=== PATIENT | female | born 1990 | race Caucasian/White ===

== ENCOUNTER 2017-07-20 11:00 | Inpatient (IN) | payer BC ==
[2017-07-20] MEDS: NORMAL SALINE 1000 ML 1,000 ML IV PRN (12:02)
[2017-07-20 12:09] LABS: HEMATOCRIT 39.1 % (36.0-47.0); HEMOGLOBIN 13.3 g/dL (12.0-15.5); MEAN CORPUSCULAR HEMOGLOBIN 32.1 pg (27.0-33.4); MEAN CORPUSCULAR HGB CONC 34.1 g/dL (32.0-36.0); MEAN CORPUSCULAR VOLUME 94 fl (80-97); PLATELET COUNT 278 10^3/uL (150-450); RED BLOOD COUNT 4.15 10^6/uL (3.72-5.28); WHITE BLOOD COUNT 19.7 10^3/uL (4.0-10.5)
--- NOTE | 2017-07-20 12:09 | ER Document Report ---
ED General - General Chief Complaint: Flu Symptoms Stated Complaint: FLU LIKE SYMPTOMS Time Seen by Provider: 07/20/17 11:29 Information source: Patient TRAVEL OUTSIDE OF THE [place] IN LAST 30 DAYS: No - HPI Patient complains to provider of: cough/fever Onset: Yesterday Onset/Duration: Gradual Severity: Moderate Associated symptoms: Chills, Nonproductive cough, Fever. denies: Nausea, Vomiting Exacerbated by: Coughing Relieved by: Denies Similar symptoms previously: No Recently seen / treated by doctor: No - Related Data Allergies/Adverse Reactions: No Known Allergies Allergy (Verified 07/20/17 11:01) Past Medical History - General Information source: Patient - Social History Smoking Status: Never Smoker Chew tobacco use (# tins/day): No Frequency of alcohol use: None Drug Abuse: None Lives with: Family Family History: Reviewed & Not Pertinent Patient has suicidal ideation: No Patient has homicidal ideation: No - Medical History Medical History: Negative Renal/ Medical History: Denies: Hx Peritoneal Dialysis - Immunizations Hx Diphtheria, Pertussis, Tetanus Vaccination: Yes Review of Systems - Review of Systems Constitutional: See HPI EENT: No symptoms reported Cardiovascular: No symptoms reported Respiratory: No symptoms reported Gastrointestinal: No symptoms reported Genitourinary: No symptoms reported Female Genitourinary: No symptoms reported Musculoskeletal: Other - body aches Skin: No symptoms reported Hematologic/Lymphatic: No symptoms reported Neurological/Psychological: Other - dizzy Physical Exam - Vital signs Vitals: Temp Pulse Resp BP Pulse Ox 98.7 F 126 H 22 H 93/79 L 91 L 07/20/17 11:08 07/20/17 11:08 07/20/17 11:08 07/20/17 11:08 07/20/17 11:08 - Notes Notes: PHYSICAL EXAMINATION: GENERAL: Well-appearing, well-nourished and in no acute distress. HEAD: Atraumatic, normocephalic. EYES: Pupils equal round and reactive to light, extraocular movements intact, conjunctiva are normal. ENT: Nares patent, oropharynx clear without exudates. Moist mucous membranes. TMs within normal limits bilaterally NECK: Normal range of motion, supple without lymphadenopathy LUNGS:. Rhonchi left lung field. No wheezes or crackles. HEART: Regular rate and rhythm without murmurs. Unable to examine cap refill secondary to patient having on fake nails with nail malagasy, as well as nail malagasy on her toes. ABDOMEN: Soft, nontender, nondistended abdomen. No guarding, no rebound. No masses appreciated. Female : deferred Musculoskeletal: Normal range of motion, no pitting or edema. No cyanosis. NEUROLOGICAL: Cranial nerves grossly intact. Normal speech, normal gait. Normal sensory, motor exams PSYCH: Normal mood, normal affect. SKIN: Warm, Dry, normal turgor, no rashes or lesions noted. Course - Re-evaluation Re-evalutation: 07/20/17 13:56 Patient's heart rate is 122 sinus tach. She is pulse oxing 80% on room air will be placed on 2 L of oxygen.Pressures 120/69.Lung exam shows rhonchi no wheezing Call has been placed to the hospitalist for admission on awaiting callback 07/20/17 15:52 :Reevaluation: Blood pressure 128/75 after 3 liters IVF. Patient resting comfortably. Again Refill cannot be assessed secondary to fake nnails and nail malagasy. 07/20/17 15:53 - Vital Signs Vital signs: Temp Pulse Resp BP Pulse Ox 98.7 F 126 H 27 H 122/75 90 L 07/20/17 11:08 07/20/17 11:08 07/20/17 15:31 07/20/17 15:31 07/20/17 15:31 - Laboratory Result Diagrams: 07/20/17 11:40 07/20/17 11:40 Laboratory results interpreted by me: 07/20/17 07/20/17 07/20/17 11:40 11:40 11:40 WBC 19.7 H Band Neutrophils % 13 H Lymphocytes % (Manual) 8 L Monocytes % (Manual) 2 L Abs Neuts (Manual) 17.5 H BUN 32 H Creatinine 1.63 H Est GFR ( Amer) 47 L Est GFR (Non-Af Amer) 38 L Glucose 129 H Lactic Acid 3.1 H - Diagnostic Test Radiology reviewed: Image reviewed, Reports reviewed Radiology results interpreted by me: 07/20/17 15:53 LLL pneumonia Critical Care Note - Critical Care Note Total time excluding time spent on procedures (mins): 30 Comments: 30 minutes of critical care time spent in direct contact evaluating and reevaluating the patient, treating symptoms, reviewing labs and studies and speaking with family and consultants excluding any procedures Discharge - Discharge Clinical Impression: Pneumonia, Renal insufficiency, Bandemia, Dehydration, Sepsis Condition: Stable Disposition: ADMITTED INPATIENT Admitting Provider: Hospitalist - JOSS[facility] [place] Unit Admitted: [facility]
[2017-07-20 12:17] LABS: A TYPE INFLUENZA AG NEGATIVE (NEGATIVE); B INFLUENZA AG NEGATIVE (NEGATIVE)
[2017-07-20 12:21] LABS: ALANINE AMINOTRANSFERASE 28 U/L (9-52); ALBUMIN 3.7 g/dL (3.5-5.0); ALKALINE PHOSPHATASE 64 U/L (38-126); ANION GAP 12 (5-19); ASPARTATE AMINO TRANSFERASE 18 U/L (14-36); BILIRUBIN,DIRECT 0.2 mg/dL (0.0-0.4); BILIRUBIN,TOTAL 0.8 mg/dL (0.2-1.3); BLOOD UREA NITROGEN 32 mg/dL (7-20); CALCIUM 9.1 mg/dL (8.4-10.2); CARBON DIOXIDE 24 mmol/L (22-30); CHLORIDE 103 mmol/L (98-107); GLUCOSE 129 mg/dL (75-110); POTASSIUM 3.8 mmol/L (3.6-5.0); SODIUM 138.9 mmol/L (137-145); TOTAL PROTEIN 6.5 g/dL (6.3-8.2)
[2017-07-20 12:25] LABS: ABSOLUTE LYMPHOCYTES# (MANUAL) 1.8 10^3/uL (0.5-4.7); ABSOLUTE MONOCYTES # (MANUAL) 0.4 10^3/uL (0.1-1.4); ABSOLUTE NEUTROPHILS# (MANUAL) 17.5 10^3/uL (1.7-8.2); BASOPHILS % (MANUAL) 0 % (0-2); EOSINOPHILS % (MANUAL) 0 % (0-6); LYMPHOCYTES % (MANUAL) 8 % (13-45); MONOCYTES % (MANUAL) 2 % (3-13); SEGMENTED NEUTROPHILS % (MAN) 76 % (42-78); TOTAL CELLS COUNTED 100
[2017-07-20 12:26] LABS: BAND NEUTROPHILS % (MANUAL) 13 % (3-5); PLATELET COMMENT ADEQUATE; RBC MORPHOLOGY COMMENT NORMO-CYTIC/CHROMIC
--- NOTE | 2017-07-20 13:05 | RADIOLOGY REPORT (SQ) ---
EXAM DESCRIPTION: CHEST SINGLE VIEW COMPLETED DATE/TIME: 07/20/2017 12:46 pm REASON FOR STUDY: chest pain COMPARISON: None. EXAM PARAMETERS: NUMBER OF VIEWS: One view. TECHNIQUE: Single frontal radiographic view of the chest acquired. RADIATION DOSE: NA LIMITATIONS: None. FINDINGS: LUNGS AND PLEURA: Left lower lobe airspace disease. Lungs and pleural spaces otherwise cl ear. MEDIASTINUM AND HILAR STRUCTURES: No masses. Contour normal. HEART AND VASCULAR STRUCTURES: Heart normal in size. Normal vasculature. BONES: No acute findings. HARDWARE: None in the chest. OTHER: No other significant finding. IMPRESSION: LEFT LOWER LOBE AIRSPACE DISEASE SUSPICIOUS FOR PNEUMONIA. TECHNICAL DOCUMENTATION: JOB ID: [id number] [employer]- All Rights Reserved
[2017-07-20] MEDS ORDERED: CEFTRIAXONE 1 GM/D5W RTU 1 GM/50 ML RTUPB IV ONE (13:21)
[2017-07-20] MEDS ORDERED: RINGERS SOLUTION,LACTATED 1,000 ML IV ONE ×2 (13:22→13:58)
[2017-07-20] MEDS ORDERED: AZITHROMYCIN INJ 500 MG VIAL IV ONE (13:22)
[2017-07-20] MEDS ORDERED: CEFTRIAXONE SODIUM 1,000 MG in DEXTROSE 5%-WATER 50 ML IV ONE (14:00)
[2017-07-20] MEDS ORDERED: NORMAL SALINE 1000 ML 1,000 ML IV PRN ×2 (15:33→15:52)
[2017-07-20] MEDS ORDERED: LEVALBUTEROL HCL NEB 1.25 MG/3 ML AMPUL NEB PRN (15:33)
[2017-07-20] MEDS ORDERED: ACETAMINOPHEN 325 MG TABLET PO PRN (15:33)
[2017-07-20] MEDS ORDERED: ONDANSETRON HCL INJ/PF 4 MG/2 ML SDV IV PRN (15:41)
[2017-07-20] MEDS ORDERED: CODEINE SULF 15 MG TABLET PO PRN (15:41)
[2017-07-20] MEDS ORDERED: NORMAL SALINE 1000 ML 1,000 ML IV ONE (15:48)
--- NOTE | 2017-07-20 16:13 | PDOC H&P ---
History of Present Illness Admission Date/PCP: 07/20/17 14:33 QUANG WILSON MD Patient complains of: Fever, cough, shortness of breath History of Present Illness: NICO DEL ANGEL is a 26 year old female with PMH significant only for PCOS presented to the emergency department with a complaint of upper respiratory symptoms consisting of nasal congestion, rhinorrhea, and sore throat that have gradually worsened. She states that last night she began feeling fevers and chills with a temperature of 101.6 with a productive cough, fatigue, and dyspnea with mild exertion. Her family member states that she was audibly wheezing overnight. Evaluation in the ED reveals leukocytosis at 19.7, creatinine of 1.2 and a lactic acid of 3.1. Chest imaging revealed a lower left lobe infiltrate. She is also noted to have tachycardia with a HR in the 130s, respiratory rate of 27 , hypotension, and hypoxia with an oxygen saturation of 88% while on 2Lpm via NC. She is referred to the hospitalist service for admission and management of sepsis secondary to pneumonia. Past Medical History Cardiac Medical History: Reports: None EENT Medical History: Reports: None Neurological Medical History: Reports: None Endocrine Medical History: Reports: Other - PCOS Renal/ Medical History: Reports: None Malignancy Medical History: Reports: None GI Medical History: Reports: None Musculoskeltal Medical History: Reports: None Skin Medical History: Reports: None Psychiatric Medical History: Reports: None Traumatic Medical History: Reports: None Hematology: Reports: None Infectious Medical History: Reports: None Past Surgical History Past Surgical History: Reports: None Social History Information Source: Patient Lives with: Family Smoking Status: Never Smoker Frequency of Alcohol Use: Occasional Hx Recreational Drug Use: No Hx Prescription Drug Abuse: No - Advance Directive Resuscitation Status: Full Code Family History Family History: Reviewed & Not Pertinent Parental Family History Reviewed: Yes Children Family History Reviewed: Yes Sibling(s) Family History Reviewed.: Yes Medication/Allergy Home Medications: Naproxen [Naproxen] 1 tab PO DAILY 07/20/17 Norethindrone [Norethindrone] 1 tab PO DAILY 07/20/17 Allergies/Adverse Reactions: No Known Allergies Allergy (Verified 07/20/17 11:01) Review of Systems Constitutional: PRESENT: chills, fatigue, fever(s), weakness. ABSENT: headache( s), weight gain, weight loss Eyes: ABSENT: visual disturbances Ears: ABSENT: hearing changes Nose, Mouth, and Throat: PRESENT: sore throat Cardiovascular: ABSENT: chest pain, dyspnea on exertion, edema, orthropnea, palpitations Respiratory: PRESENT: cough, dyspnea, sputum. ABSENT: hemoptysis Gastrointestinal: ABSENT: abdominal pain, constipation, diarrhea, hematemesis, hematochezia, nausea, vomiting Genitourinary: ABSENT: dysuria, hematuria Musculoskeletal: ABSENT: joint swelling Integumentary: ABSENT: rash, wounds Neurological: ABSENT: abnormal gait, abnormal speech, confusion, dizziness, focal weakness, syncope Psychiatric: ABSENT: anxiety, depression, homidical ideation, suicidal ideation Endocrine: ABSENT: cold intolerance, heat intolerance, polydipsia, polyuria Hematologic/Lymphatic: ABSENT: easy bleeding, easy bruising Physical Exam Vital Signs: Temp Pulse Resp BP Pulse Ox 98.7 F 126 H 23 H 115/71 91 L 07/20/17 11:08 07/20/17 11:08 07/20/17 15:01 07/20/17 15:00 07/20/17 15:01 General appearance: PRESENT: cooperative, mild distress, well-developed, well- nourished, other - Overweight Head exam: PRESENT: atraumatic, normocephalic Eye exam: PRESENT: conjunctiva pink, EOMI, PERRLA. ABSENT: scleral icterus Ear exam: PRESENT: normal external ear exam Mouth exam: PRESENT: moist, tongue midline Neck exam: PRESENT: full ROM. ABSENT: carotid bruit, JVD, lymphadenopathy, thyromegaly Respiratory exam: PRESENT: rhonchi, tachypnea, wheezes. ABSENT: rales Cardiovascular exam: PRESENT: RRR, +S1, +S2, tachycardia. ABSENT: diastolic murmur, rubs, systolic murmur Pulses: PRESENT: normal dorsalis pedis pul Vascular exam: PRESENT: normal capillary refill GI/Abdominal exam: PRESENT: normal bowel sounds, soft. ABSENT: distended, guarding, mass, organolmegaly, rebound, tenderness Rectal exam: PRESENT: deferred Extremities exam: PRESENT: full ROM. ABSENT: calf tenderness, clubbing, pedal edema Neurological exam: PRESENT: alert, awake, oriented to person, oriented to place , oriented to time, oriented to situation, CN II-XII grossly intact. ABSENT: motor sensory deficit Psychiatric exam: PRESENT: appropriate affect, normal mood. ABSENT: homicidal ideation, suicidal ideation Skin exam: PRESENT: dry, intact, warm. ABSENT: cyanosis, rash Results Impressions: Chest X-Ray 07/20/17 11:32 IMPRESSION: LEFT LOWER LOBE AIRSPACE DISEASE SUSPICIOUS FOR PNEUMONIA. Assessment & Plan - Diagnosis (1) Sepsis Qualifiers: Sepsis type: sepsis due to unspecified organism Qualified Code(s): A41.9 - Sepsis, unspecified organism Is this a current diagnosis for this admission?: Yes Plan: PT is admited with WBC of 19.7, lactic acid of 3.1, tachycardia, hypotension, tachypnea, and hypoxia. Blood cultures are pending. She will be admitted to [facility] on continuous cardiac telemetry and pulse oximetry. She has received 3L IV bolus in the ED. Will order an additional 1L bolus followed by maintenance fluid at 150ml/hr. She will be provided supplemental oxygen to keep saturations greater than 92%. She has been empirically placed on Ceftriaxone and Azithromycin for coverage of CAP. (2) Pneumonia Qualifiers: Pneumonia type: due to unspecified organism Laterality: left Lung location: lower lobe of lung Qualified Code(s): J18.1 - Lobar pneumonia, unspecified organism Is this a current diagnosis for this admission?: Yes Plan: Pt is noted to have a LLL infiltrate by chest imaging. Blood cultures are pending. Will obtain sputum culture. She has been placed on empiric antibiotics. Will support with supplemental oxygen as needed to maintain saturations greater than 92%. She will be provided scheduled albuterol nebs with as needed Xopenex. She is provided scheduled Mucinex and Codeine tablets as needed for cough. Incentive spirometry to bedside. (3) Acute renal failure (ARF) Is this a current diagnosis for this admission?: Yes Plan: Likely prerenal; secondary to fluid volume deficit in the setting of sepsis. Pt will receive IVF resuscitation. Will avoid all nephrotoxic medications. Monitor daily chemistry. (4) Leukocytosis Qualifiers: Leukocytosis type: bandemia Qualified Code(s): D72.825 - Bandemia Is this a current diagnosis for this admission?: Yes Plan: Secondary to Community acquired pneumonia. Blood cultures pending. She has been placed on empiric antibiotics. Will monitor. (5) Dehydration Is this a current diagnosis for this admission?: Yes Plan: Secondary to fluid volume deficit secondary to sepsis. She is receiving IV fluid resuscitation. (6) PCOS (polycystic ovarian syndrome) Is this a current diagnosis for this admission?: No Plan: Continue patient's home OCP. - Time Time Spent: 50 to 70 Minutes - Inpatient Certification Based on my medical assessment, after consideration of the patient's comorbidities, presenting symptoms, or acuity I expect that the services needed warrant INPATIENT care.: Yes I certify that my determination is in accordance with my understanding of Medicare's requirements for reasonable and necessary INPATIENT services [42 CFR 412.3e].: Yes Medical Necessity: Need Close Monitoring Due to Risk of Patient Decompensation, Need For IV Fluids, Need For Continuous Telemetry Monitoring, Need for IV Antibiotics
[2017-07-20] MEDS ORDERED: LEVALBUTEROL HCL NEB 1.25 MG/3 ML AMPUL NEB ONE (16:30)
[2017-07-20] MEDS ORDERED: IPRATROPIUM/ALBUTEROL 0.5-2.5 MG/3 ML AMPUL NEB SCH (20:00)
[2017-07-20] MEDS: ALBUTEROL SULFATE 0.083% NEB 2.5 MG/3 ML AMPUL NEB SCH (20:18)
[2017-07-21] MEDS: FAMOTIDINE 20 MG TABLET PO SCH ×3 (01:00→21:49)
[2017-07-21] MEDS: GUAIFENESIN 600 MG TABLET.SA PO SCH ×3 (01:01→21:49)
[2017-07-21] MEDS: ALBUTEROL SULFATE 0.083% NEB 2.5 MG/3 ML AMPUL NEB SCH ×4 (02:00→19:33)
[2017-07-21 05:09] LABS: HEMOGLOBIN 12.5 g/dL (12.0-15.5); MEAN CORPUSCULAR HEMOGLOBIN 32.2 pg (27.0-33.4); MEAN CORPUSCULAR VOLUME 95 fl (80-97); PLATELET COUNT 207 10^3/uL (150-450); RED CELL DISTRIBUTION WIDTH 13.9 % (11.5-14.0); WHITE BLOOD COUNT 20.2 10^3/uL (4.0-10.5)
[2017-07-21 05:10] LABS: ANION GAP 10 (5-19); CALCIUM 9.1 mg/dL (8.4-10.2); CARBON DIOXIDE 24 mmol/L (22-30); CHLORIDE 108 mmol/L (98-107); GLUCOSE 120 mg/dL (75-110); SODIUM 141.8 mmol/L (137-145)
[2017-07-21 06:10] LABS: BLOOD UREA NITROGEN 10 mg/dL (7-20)
[2017-07-21] MEDS ORDERED: NORETHINDRONE PO SCH (10:00)
[2017-07-21] MEDS ORDERED: CEFTRIAXONE 1 GM/D5W RTU 50 ML IV SCH (10:00)
[2017-07-21] MEDS: CEFTRIAXONE SODIUM 1,000 MG in DEXTROSE 5%-WATER 50 ML IV SCH (10:20)
[2017-07-21] MEDS: ENOXAPARIN SODIUM INJ 40 MG/0.4 ML DISP.SYRIN SUBCUT SCH (10:21)
[2017-07-21] MEDS: NORMAL SALINE 1000 ML 1,000 ML IV PRN ×3 (10:33→23:01)
[2017-07-21] MEDS ORDERED: ZOLPIDEM TARTRATE 5 MG TABLET PO PRN (12:09)
--- NOTE | 2017-07-21 12:09 | PDOC PROGRESS REPORT ---
Subjective Progress Note for:: 07/21/17 Subjective:: The patient is a 26 year old female with a PMH significant only for PCOS who was admitted on 07/20/17 for sepsis secondary to a LLL pneumonia. The patient is seen on morning rounds resting in bed comfortably with her mother present. She remains on 2Lpm via NC. She reports that her cough has improved significantly, but that she continues to have dyspnea with slight exertion. Overall, she states she is feeling much improved. She did have trouble sleeping last night and requests a sleep aid for tonight. She has no other questions or concerns. Reason For Visit: PNEUMONIA Physical Exam Vital Signs: Temp Pulse Resp BP Pulse Ox 97.4 F 118 H 22 H 125/78 99 07/21/17 11:43 07/21/17 08:04 07/21/17 11:16 07/21/17 11:16 07/21/17 11:42 General appearance: PRESENT: no acute distress, well-developed, well-nourished, other - Overweight Head exam: PRESENT: atraumatic, normocephalic Eye exam: PRESENT: conjunctiva pink, EOMI, PERRLA. ABSENT: scleral icterus Ear exam: PRESENT: normal external ear exam Mouth exam: PRESENT: moist, tongue midline Neck exam: ABSENT: carotid bruit, JVD, lymphadenopathy, thyromegaly Respiratory exam: PRESENT: crackles, rhonchi, symmetrical, unlabored, other - supplemental oxygen via NC. ABSENT: rales, wheezes Cardiovascular exam: PRESENT: RRR, +S1, +S2, tachycardia. ABSENT: diastolic murmur, rubs, systolic murmur Pulses: PRESENT: normal dorsalis pedis pul Vascular exam: PRESENT: normal capillary refill GI/Abdominal exam: PRESENT: normal bowel sounds, soft. ABSENT: distended, guarding, mass, organolmegaly, rebound, tenderness Rectal exam: PRESENT: deferred Extremities exam: PRESENT: full ROM. ABSENT: calf tenderness, clubbing, pedal edema Neurological exam: PRESENT: alert, awake, oriented to person, oriented to place , oriented to time, oriented to situation, CN II-XII grossly intact. ABSENT: motor sensory deficit Psychiatric exam: PRESENT: appropriate affect, normal mood. ABSENT: homicidal ideation, suicidal ideation Skin exam: PRESENT: dry, intact, warm. ABSENT: cyanosis, rash Results Laboratory Results: 07/21/17 04:35 07/21/17 04:35 07/20/17 07/21/17 07/21/17 15:55 04:35 04:35 WBC 20.2 H RBC 3.90 Hgb 12.5 Hct 37.0 MCV 95 MCH 32.2 MCHC 34.0 RDW 13.9 Plt Count 207 Sodium 141.8 Potassium 4.0 Chloride 108 H Carbon Dioxide 24 Anion Gap 10 BUN 10 D Creatinine 0.68 Est GFR ( Amer) > 60 Est GFR (Non-Af Amer) > 60 Glucose 120 H Lactic Acid 2.8 H Calcium 9.1 Impressions: Chest X-Ray 07/20/17 11:32 IMPRESSION: LEFT LOWER LOBE AIRSPACE DISEASE SUSPICIOUS FOR PNEUMONIA. Assessment & Plan - Diagnosis (1) Sepsis Qualifiers: Sepsis type: sepsis due to unspecified organism Qualified Code(s): A41.9 - Sepsis, unspecified organism Is this a current diagnosis for this admission?: Yes Plan: Improved. PT is admited with WBC of 19.7, lactic acid of 3.1, tachycardia, hypotension, tachypnea, and hypoxia. The patient remains tachycardic and oxygen dependent; however, she is no longer hypotensive or tachypnic. Blood cultures: No growth at 24 hours. Will downgrade to medical floor with continuous cardiac telemetry and pulse oximetry. Adequately fluid resuscitated. Will continue maintenance fluids. She will be provided supplemental oxygen to keep saturations greater than 92%. She has been empirically placed on Ceftriaxone and Azithromycin for coverage of CAP. (2) Pneumonia Qualifiers: Pneumonia type: due to unspecified organism Laterality: left Lung location: lower lobe of lung Qualified Code(s): J18.1 - Lobar pneumonia, unspecified organism Is this a current diagnosis for this admission?: Yes Plan: Pt is noted to have a LLL infiltrate by chest imaging. Blood cultures: No growth at 24 hours. Will obtain sputum culture. She has been placed on empiric antibiotics. Will support with supplemental oxygen as needed to maintain saturations greater than 92%. She will be provided scheduled albuterol nebs with as needed Xopenex. She is provided scheduled Mucinex and Codeine tablets as needed for cough. Incentive spirometry to bedside. (3) Acute renal failure (ARF) Is this a current diagnosis for this admission?: Yes Plan: Resolved. Likely was prerenal secondary to fluid volume deficit in the setting of sepsis. Continue maintenance fluids. Will avoid all nephrotoxic medications. Monitor daily chemistry. (4) Leukocytosis Qualifiers: Leukocytosis type: bandemia Qualified Code(s): D72.825 - Bandemia Is this a current diagnosis for this admission?: Yes Plan: Secondary to Community acquired pneumonia. Blood cultures obtained. She has been placed on empiric antibiotics. Will monitor. (5) Dehydration Is this a current diagnosis for this admission?: Yes Plan: Resolved. Secondary to fluid volume deficit secondary to sepsis. Will continue maintenance fluids. (6) PCOS (polycystic ovarian syndrome) Is this a current diagnosis for this admission?: No Plan: Continue patient's home OCP. - Time Time Spent with patient: 15-24 minutes Medications reviewed and adjusted accordingly: Yes Anticipated discharge: Home Within: within 48 hours - When no longer requiring oxygen
[2017-07-21] MEDS: AZITHROMYCIN 500 MG in DEXTROSE 5%-WATER 250 ML IV SCH (12:11)
[2017-07-21 16:27] LABS: PATH REVIEW PATHOLOGIST REVIEWED
[2017-07-22] MEDS: ALBUTEROL SULFATE 0.083% NEB 2.5 MG/3 ML AMPUL NEB SCH ×3 (01:50→13:57)
[2017-07-22 04:58] LABS: HEMATOCRIT 34.2 % (36.0-47.0); HEMOGLOBIN 11.9 g/dL (12.0-15.5); MEAN CORPUSCULAR HEMOGLOBIN 32.6 pg (27.0-33.4); MEAN CORPUSCULAR HGB CONC 34.7 g/dL (32.0-36.0); MEAN CORPUSCULAR VOLUME 94 fl (80-97); PLATELET COUNT 212 10^3/uL (150-450); RED BLOOD COUNT 3.65 10^6/uL (3.72-5.28); WHITE BLOOD COUNT 12.6 10^3/uL (4.0-10.5)
[2017-07-22] MEDS: NORMAL SALINE 1000 ML 1,000 ML IV PRN (07:52)
[2017-07-22] MEDS: CEFTRIAXONE SODIUM 1,000 MG in DEXTROSE 5%-WATER 50 ML IV SCH (09:19)
[2017-07-22] MEDS: ENOXAPARIN SODIUM INJ 40 MG/0.4 ML DISP.SYRIN SUBCUT SCH (09:20)
[2017-07-22] MEDS: GUAIFENESIN 600 MG TABLET.SA PO SCH (09:20)
[2017-07-22] MEDS: FAMOTIDINE 20 MG TABLET PO SCH (09:21)
[2017-07-22] MEDS ORDERED: NORETHINDRONE 0.35 MG PO SCH (10:00)
[2017-07-22] MEDS: AZITHROMYCIN 500 MG in DEXTROSE 5%-WATER 250 ML IV SCH (11:33)
[2017-07-22 15:45] VITALS: BP 93/79
--- NOTE | 2017-07-22 17:00 | PDOC DISCHARGE SUMMARY ---
General - Admit/Disc Date/PCP Admission Date/Primary Care Provider: 07/20/17 14:33 QUANG WILSON MD Discharge Date: 07/22/17 - Discharge Diagnosis (1) Sepsis Is this a current diagnosis for this admission?: Yes Summary: Secondary to acute community-acquired pneumonia: Patient was placed on IV antibiotics and given IV fluids for volume expansion. Patient demonstrated significant improvement. At time of discharge patient was placed on Levaquin 750 mg p.o. daily to complete additional 5 days of treatment. (2) Pneumonia Is this a current diagnosis for this admission?: Yes Summary: Secondary to community-acquired pneumonia. Patient was placed on IV antibiotics and then transition to p.o. antibiotics. Patient is doing well. (3) Acute renal failure (ARF) Is this a current diagnosis for this admission?: Yes Summary: Patient was noted to have acute renal failure in setting of normal renal function: Patient was given IV fluids for volume expansion and patient's renal function improved. Patient's renal function at time of discharge was 0.86. (4) Dehydration Is this a current diagnosis for this admission?: Yes Summary: In setting of sepsis: Patient was given IV fluids for volume expansion and responded well. At time of discharge patient is dehydration had resolved. (5) Leukocytosis Is this a current diagnosis for this admission?: Yes Summary: In setting of sepsis: Leukocytosis had resolved. Patient will continue on Levaquin 750 mg for 5 days. - Additional Information Resuscitation Status: Full Code Discharge Diet: Regular Discharge Activity: Activity As Tolerated Prescriptions: Levofloxacin [Levaquin 750 mg Tablet] 750 mg PO DAILY #5 tablet Home Medications: Norethindrone 0.35 mg PO DAILY 07/21/17 Acetaminophen [Tylenol 325 mg Tablet] 650 mg PO Q4HP PRN tablet 07/22/17 Levofloxacin [Levaquin 750 mg Tablet] 750 mg PO DAILY #5 tablet 07/22/17 History of Present Illness Patient complains of: Upper respiratory symptoms of nasal congestion, sore throat, rhinorrhea History of Present Illness: NICO DEL ANGEL is a 26 year old female sent to the emergency room with complaint of upper history symptoms of nasal congestion, rhinorrhea, and sore throat. Patient reported that she had not been feeling well and also been febrile. Patient was noted in the emergency department to have a temperature of 101.6 patient was also noted to have a white count of 19,000 creatinine of 0.2 and lactic acid of 3.1. She was admitted to the hospital where she was placed on IV fluids for volume expansion and started on antibiotics. Patient's renal function continued to improve as well as hypotension with volume expansion. Patient's white count also trended down and patient became afebrile. On day of discharge patient was ambulating around room and was able to tolerate her diet. Patient did not have any wheezing or prolonged expiratory phase on physical exam. Hospital Course Hospital Course: Patient is 26-year-old female who was admitted to the hospital where she was found to be septic secondary to community-acquired pneumonia. Patient was started on broad-spectrum antibiotics given IV fluids to help resolve dehydration acute renal injury and hypotension. Patient was noted to be hypoxic at time of admission however this improved after patient received treatment for infection. Physical Exam Vital Signs: Temp Pulse Resp BP Pulse Ox 98.4 F 101 H 16 93/79 L 96 07/22/17 15:43 07/22/17 15:43 07/22/17 15:43 07/22/17 15:43 07/22/17 15:43 Intake & Output 07/21/17 07/22/17 07/23/17 06:59 06:59 06:59 Intake Total 4200 536 Balance 4200 536 Weight 93.7 kg General appearance: PRESENT: no acute distress, well-developed, well-nourished Head exam: PRESENT: atraumatic, normocephalic Eye exam: PRESENT: conjunctiva pink, EOMI. ABSENT: scleral icterus Ear exam: PRESENT: normal external ear exam Mouth exam: PRESENT: moist, tongue midline Neck exam: ABSENT: carotid bruit, JVD, lymphadenopathy, thyromegaly Respiratory exam: PRESENT: clear to auscultation esmer. ABSENT: rales, rhonchi, wheezes Cardiovascular exam: PRESENT: RRR. ABSENT: diastolic murmur, rubs, systolic murmur Pulses: PRESENT: normal dorsalis pedis pul Vascular exam: PRESENT: normal capillary refill GI/Abdominal exam: PRESENT: normal bowel sounds, soft. ABSENT: distended, guarding, mass, organolmegaly, rebound, tenderness Rectal exam: PRESENT: deferred Extremities exam: PRESENT: full ROM. ABSENT: calf tenderness, clubbing, pedal edema Neurological exam: PRESENT: alert, awake, oriented to person, oriented to place , oriented to time, oriented to situation, CN II-XII grossly intact. ABSENT: motor sensory deficit Psychiatric exam: PRESENT: appropriate affect, normal mood. ABSENT: homicidal ideation, suicidal ideation Skin exam: PRESENT: dry, intact, warm. ABSENT: cyanosis, rash Results Laboratory Results: 07/22/17 04:21 07/21/17 04:35 07/22/17 04:21 WBC 12.6 H RBC 3.65 L Hgb 11.9 L Hct 34.2 L MCV 94 MCH 32.6 MCHC 34.7 RDW 14.0 Plt Count 212 Impressions: Chest X-Ray 07/20/17 11:32 IMPRESSION: LEFT LOWER LOBE AIRSPACE DISEASE SUSPICIOUS FOR PNEUMONIA. Plan Time Spent: Greater than 30 Minutes
[2017-07-23] MEDS ORDERED: AZITHROMYCIN 250 MG TABLET PO SCH (12:00)
== END 2017-07-22 16:04 | disposition home or self-care (01) | DRG 871 ==
LOC: ER 11:00 → EH 14:33 → 3N 07-21 12:57
PROVIDERS: ADMIT Internal Medicine; ATTEND Internal Medicine
PROC: 3E0F73Z Introduction of Anti-inflammatory into Respiratory Tract, Via Natural or Artificial Opening (ICD-10-PCS; principal; 2017-07-20)
DX: A41.9 Sepsis, unspecified organism (principal); J18.1 Lobar pneumonia, unspecified organism; N17.9 Acute kidney failure, unspecified; E86.0 Dehydration; I95.9 Hypotension, unspecified; R09.02 Hypoxemia; E28.2 Polycystic ovarian syndrome; Z79.899 Other long term (current) drug therapy
CPT/HCPCS: 36415; 71045; 80048; 80053; 83605; 84702; 85025; 85027; 87040; 87070; 87205; 87804; 94799; 96361; 96365; 99285; J0456; J0696; J1650; J2405; J3490; J7030; J7060; J7120